=== PATIENT | female | born 1965 | race Caucasian/White ===

== ENCOUNTER → 2023-07-14 10:46 | Outpatient (REF) | payer OTHER, SELFPAY | LOC: WDC 10:46 | PROVIDERS: ATTENDING PHYSICIAN Physician Assistant | DX: Z12.31 Encounter for screening mammogram for malignant neoplasm of breast (principal) | CPT/HCPCS: 77063; 77067 ==

== ENCOUNTER → 2023-08-04 09:32 | Outpatient (REF) | payer OTHER, SELFPAY | LOC: WDC 09:32 | PROVIDERS: ATTENDING PHYSICIAN Physician Assistant | DX: R92.8 Other abnormal and inconclusive findings on diagnostic imaging of breast (principal) | CPT/HCPCS: 76642 ==

== ENCOUNTER 2024-04-02 06:24 | Day surgery (SDC) | payer OTHER, SELFPAY | END 2024-04-02 15:25 | disposition home or self-care (01) | LOC: GI 06:24 | PROVIDERS: ATTENDING PHYSICIAN Internal Medicine Gastroenterology | DX: Z12.11 Encounter for screening for malignant neoplasm of colon (principal); Z85.038 Personal history of other malignant neoplasm of large intestine; Z98.0 Intestinal bypass and anastomosis status | CPT/HCPCS: G0105 ==

== ENCOUNTER → 2024-07-17 11:41 | Outpatient (REF) | payer OTHER, SELFPAY | LOC: WDC 11:41 | PROVIDERS: ATTENDING PHYSICIAN Physician Assistant | DX: Z12.31 Encounter for screening mammogram for malignant neoplasm of breast (principal) | CPT/HCPCS: 77063; 77067 ==